=== PATIENT | female | born 1930 | race Caucasian/White ===

== ENCOUNTER 2017-06-22 11:06 | Emergency (ER) | payer OTHER ==
[2017-06-22 13:38] VITALS: BP 151/83
== END 2017-06-22 13:56 | disposition home or self-care (01) ==
LOC: ED 11:06
DX: S93.401A Sprain of unspecified ligament of right ankle, initial encounter (principal); S20.211A Contusion of right front wall of thorax, initial encounter; S39.92XA Unspecified injury of lower back, initial encounter; W18.30XA Fall on same level, unspecified, initial encounter; Y93.89 Activity, other specified; Y92.89 Other specified places as the place of occurrence of the external cause; Y99.8 Other external cause status; I10 Essential (primary) hypertension; E11.9 Type 2 diabetes mellitus without complications; M81.0 Age-related osteoporosis without current pathological fracture; Z85.3 Personal history of malignant neoplasm of breast; E78.5 Hyperlipidemia, unspecified
CPT/HCPCS: Q0092